=== PATIENT | female | born 1950 | race Caucasian/White ===

== ENCOUNTER 2021-12-24 18:03 | Outpatient (CLI) | payer MEDICARE, OTHER | END 2021-12-24 23:59 | disposition critical access hospital (66) | LOC: EMS 18:03 | DX: R06.09 Other forms of dyspnea (principal); R60.0 Localized edema | CPT/HCPCS: A0425; A0429 ==

== ENCOUNTER 2021-12-24 18:23 | Inpatient (IN) | payer MEDICARE, OTHER ==
--- NOTE | 2021-12-24 19:12 | XRAY Report ---
PROCEDURE: Chest 1 View X-Ray INDICATIONS: dyspnea TECHNIQUE: One view of the chest was acquired. COMPARISON: None. FINDINGS: Surgical changes and devices: None. Lungs and pleura: Hyperinflation consistent with COPD. Mildly increased pulmonary vascularity. No foc al consolidation. Trace pleural effusion may be present. There is a nodular density in the right uppe r lobe, most likely caused by summation artifact from crossing ribs. No pneumothorax. Mediastinum: Mediastinal contours appear normal. Heart size is normal. Bones and chest wall: No suspicious bony lesions. Overlying soft tissues appear unremarkable. IMPRESSION: 1. COPD. 2. Increased pulmonary vascularity suggesting mild CHF. 3. Trace pleural effusions bilaterally. 4. A nodular density in the right upper lobe, most likely caused by artifact from crossing ribs. A no nemergent follow-up two-view chest is suggested. Reviewed by: Ho Chaves MD on 12/24/2021 7:10 PM PST Approved by: Ho Chaves MD on 12/24/2021 7:10 PM PST Station ID: [id number]
[2021-12-24 19:22] LABS: BASOPHILS % (AUTO) 0.3 %; EOSINOPHILS % (AUTO) 0.3 %; HCT - HEMATOCRIT 55.9 % (37.0-47.0); LYMPHOCYTES # (AUTO) 0.4 10^3/uL (1.5-3.5); LYMPHOCYTES % (AUTO) 4.8 %; MEAN CORPUSCULAR HEMOGLOBIN 30.2 pg (27.0-31.0); MEAN CORPUSCULAR HGB CONC 30.4 g/dL (32.0-36.0); MEAN CORPUSCULAR VOLUME 99.3 fL (81.0-99.0); MEAN PLATELET VOLUME 10.3 fL (7.9-10.8); MONOCYTES # (AUTO) 0.9 10^3/uL (0.0-1.0); MONOCYTES % (AUTO) 11.1 %; NEUTROPHILS # (AUTO) 6.4 10^3/uL (1.5-6.6); NEUTROPHILS % (AUTO) 82.6 %; NRBC ABSOLUTE COUNT (AUTO) 0.18 x10^3/uL; NUCLEATED RED BLOOD CELLS AUTO 2.3 /100WBC; PLT - PLATELET COUNT 284 10^3/uL (130-450); RED BLOOD COUNT 5.63 10^6/uL (4.20-5.40); WHITE BLOOD COUNT 7.7 x10^3/uL (4.8-10.8)
[2021-12-24 19:34] LABS: ALBUMIN 3.5 g/dL (3.2-5.5); ALBUMIN/GLOBULIN RATIO 0.9 (1.0-2.2); BILIRUBIN,TOTAL 0.6 mg/dL (0.2-1.0); CALCIUM 9.1 mg/dL (8.5-10.3); CREATININE 0.6 mg/dL (0.4-1.0); MAGNESIUM 2.4 mg/dL (1.7-2.8); POTASSIUM 4.9 mmol/L (3.5-5.0); TOTAL PROTEIN 7.2 g/dL (6.7-8.2)
--- NOTE | 2021-12-24 20:03 | ED Physician Documentation ---
PD HPI DYSPNEA - Stated complaint Stated Complaint: WEAKNESS/SOA - Chief complaint Chief Complaint: Resp - History obtained from History obtained from: Patient - Additional information Additional information: 71-year-old woman with long standing history of tobacco abuse albeit quit about a year ago presents with several weeks of worsening shortness of breath. Its associate with mild cough. No orthopnea. She does have some pedal edema. She subsequently called the ambulance tonight for her shortness of breath and was found to have room air sats in the 70s. She has no formal diagnosis of COPD or emphysema. No history of heart problems. Review of Systems Constitutional: denies: Fever, Chills Eyes: reports: Reviewed and negative Nose: denies: Rhinorrhea / runny nose Cardiac: denies: Chest pain / pressure, Palpitations Respiratory: reports: Dyspnea, Cough PD PAST MEDICAL HISTORY - Present Medications Home Medications: Ambulatory Orders Medication Instructions Recorded Confirmed No Known Home Medications 12/24/21 12/24/21 - Allergies Allergies/Adverse Reactions: Allergies Allergy/AdvReac Type Severity Reaction Status Date / Time amoxicillin Allergy Hives Verified 12/24/21 18:33 PD ED PE NORMAL - Vitals Vital signs reviewed: Yes - General General: Alert and oriented X 3, Other (Mildly labored breathing, sats in the high 80s on supplemental oxygen but speaking in full sentences.) - HEENT HEENT: PERRL, EOMI - Neck Neck: Supple, no meningeal sign, No bony TTP - Cardiac Cardiac: Other (Rapid and regular without murmur) - Respiratory Respiratory: No respiratory distress, Other (Slightly diminished throughout with expiratory wheezes throughout) - Abdomen Abdomen: Non tender - Back Back: No CVA TTP, No spinal TTP - Derm Derm: Normal color, Warm and dry - Extremities Extremities: Other (1+ PITTING EDEMA) - Neuro Neuro: Alert and oriented X 3, Normal speech Results - Vitals Vitals: Vital Signs - 24 hr 12/24/21 12/24/21 12/24/21 18:33 18:40 19:10 Temperature 37.2 C Heart Rate 103 H 104 H 103 H Respiratory 24 24 18 Rate Blood Pressure 150/82 H 150/82 H 126/76 O2 Saturation 85 L 100 100 If not protocol 4 4 : Oxygen Flow, liters/minute 12/24/21 12/24/21 12/24/21 19:40 20:35 21:01 Temperature Heart Rate 104 H 24 L Respiratory 16 101 H Rate Blood Pressure 111/65 O2 Saturation 96 89 L If not protocol 4 4 : Oxygen Flow, liters/minute Oxygen O2 Source Room air Oxygen Flow Rate 2 - EKG (time done) 1855 Rate: Rate (enter#) (102) Rhythm: Sinus tachycardia, LAE, FRANCISCO [place]: Normal Intervals: Other (Left anterior fascicular block) QRS: LVH (Borderline) Ischemia: Q waves (Anterior). No: ST elevation c/w ischemia, ST depression - Labs Labs: Laboratory Tests 12/24/21 12/24/21 12/24/21 19:09 19:09 19:09 WBC 7.7 RBC 5.63 H Hgb 17.0 H Hct 55.9 H MCV 99.3 H MCH 30.2 MCHC 30.4 L RDW 17.0 H Plt Count 284 MPV 10.3 Neut # (Auto) 6.4 Lymph # (Auto) 0.4 L Kerr # (Auto) 0.9 Eos # (Auto) 0.0 Baso # (Auto) 0.0 Absolute Nucleated RBC 0.18 Nucleated RBC % 2.3 VBG pH VBG pCO2 VBG pO2 VBG HCO3 VBG Total CO2 VBG O2 Saturation VBG Base Excess Sodium 143 Potassium 4.9 Chloride 97 L Carbon Dioxide 38 H Anion Gap 8.0 BUN 48 H Creatinine 0.6 Estimated GFR (MDRD) 98 Glucose 133 H Lactic Acid Calcium 9.1 Magnesium 2.4 Total Bilirubin 0.6 AST 38 ALT 57 Alkaline Phosphatase 105 B-Natriuretic Peptide 793 H Total Protein 7.2 Albumin 3.5 Globulin 3.7 Albumin/Globulin Ratio 0.9 L 12/24/21 12/24/21 19:09 20:05 WBC RBC Hgb Hct MCV MCH MCHC RDW Plt Count MPV Neut # (Auto) Lymph # (Auto) Kerr # (Auto) Eos # (Auto) Baso # (Auto) Absolute Nucleated RBC Nucleated RBC % VBG pH 7.373 VBG pCO2 61.0 H VBG pO2 71.9 H VBG HCO3 34.7 H VBG Total CO2 36.6 H VBG O2 Saturation 94.6 H VBG Base Excess 6.8 H Sodium Potassium Chloride Carbon Dioxide Anion Gap BUN Creatinine Estimated GFR (MDRD) Glucose Lactic Acid 1.0 Calcium Magnesium Total Bilirubin AST ALT Alkaline Phosphatase B-Natriuretic Peptide Total Protein Albumin Globulin Albumin/Globulin Ratio - Rads (name of study) 1V CXR Radiology: EMP read contemporaneously (Single view chest x-ray demonstrates COPD and possibly mild CHF with trace bilateral effusions. Possible nodular density in the right upper lobe needing follow-up.) PD MEDICAL DECISION MAKING - ED course ED course: 71-year-old woman without formal diagnosis of COPD presents with dyspnea, hypoxemia down into the 70s at home, some cough and also some pedal edema. Work-up here demonstrates polycythemia, probably secondary, evidence of chronic CO2 retention without current acidosis, elevated BNP, and chest x-ray showing evidence of COPD with small bilateral pleural effusions and mild CHF. Also likely artifact from crossing ribs but a follow-up chest x-ray is recommended. She did not get much improvement from breathing treatments, steroids, and Rocephin in the emergency department. After 3 breathing treatments I turned off her supplemental oxygen and she drifted down to about 88% on room air. The oxygen was turned back on of course. We will add some Lasix for diuresis and the hospitalist was paged for admission at 9:04 PM. - Critical Care Time(min): 40 Time Includes: Direct patient care, Review records, Reassess patient, Document care, Coordinate care, Medical consult Data interpretation: Labs, Pulse ox, ABG Procedures included in critical care time: Peripheral IV Procedures excluded from critical care time: EKG Departure - Departure Disposition: 66 [facility] DC/Xfer Clinical Impression: COPD exacerbation, Hypoxemia Congestive heart failure Qualifiers: Heart failure type: unspecified Heart failure chronicity: unspecified Qualified Code(s): I50.9 - Heart failure, unspecified Condition: Serious
[2021-12-24] MEDS ORDERED: methylPREDNISolone SUCCINATE 125 MG/2 ML VIAL IVP STA (20:06)
[2021-12-24] MEDS ORDERED: cefTRIAXone 1 GM in SODIUM CHLORIDE 0.9% MINIBAG 100 ML IV STA (20:06)
[2021-12-24] MEDS ORDERED: IPRATROPIUM/ALBUTEROL 3 ML NEB INH STA (20:07)
[2021-12-24] MEDS ORDERED: ALBUTEROL NEB 2.5 MG/3 ML INH STA (20:07)
[2021-12-24 20:11] LABS: VBG BASE EXCESS 6.8 mmol/L (-2 - +2); VBG HCO3 34.7 mmol/L (23-28); VBG OXYGEN SATURATION 94.6 % (60-80); VBG PH 7.373 (7.31-7.41); VBG PO2 71.9 mmHg (25-47); VBG TOTAL CO2 36.6 mmol/L (24-29)
[2021-12-24] MEDS ORDERED: cefTRIAXone 1 GM VIAL ONE (20:18)
[2021-12-24] MEDS ORDERED: FUROSEMIDE 40 MG/4 ML VIAL IVP STA (21:03)
[2021-12-24] MEDS ORDERED: ACETAMINOPHEN 325 MG TABLET PO PRN (22:00)
[2021-12-24] MEDS ORDERED: SODIUM CHLORIDE FLUSH 0.9% 10 ML SYRINGE IVP PRN (22:00)
[2021-12-24] MEDS ORDERED: ONDANSETRON 4 MG/2 ML VIAL IVP PRN (22:00)
[2021-12-24] MEDS ORDERED: HYDROcod/ACETAM 5/325 MG TABLET PO PRN (22:00)
[2021-12-24] MEDS ORDERED: ZOLPIDEM 5 MG TABLET PO PRN (22:00)
[2021-12-24] MEDS ORDERED: predniSONE 20 MG TABLET PO STA (22:06)
[2021-12-24] MEDS ORDERED: MAGNESIUM SULFATE 2 GRAM 2 GM/50 ML BAG IV ONE (22:07)
--- NOTE | 2021-12-24 22:12 | HISTORY & PHYSICAL EXAMINATION ---
Chief Complaint - Chief Complaint Chief Complaint: SOB and weakness History of Present Illness - Admitted From Admitted From:: Home - History Obtained From Records Reviewed: Yes History obtained from: Medical records and discussing with ER MD Exam Limitations: Televideo not working well - History of Present Illness HPI Comment/Other: 71 yr woman with hx of chronic tobacco use dependence smoking quit one year ago comes to ER with worsening SOB, cough, barrel chest, patient in ER found to be hypoxic also found to have elevated BNP with CXR concerning for mild CHF. Patient needed multiple nebs and iv steroids and I was requested by ER MD to admit patient for medical optimization, patient also found to be hypoxic with metabolic alkalosis and co2 retention likely from COPD. History obtained limited and unable to have vido connect due to technical difficulty No other active concer, no cp, no palpitations and no other active complaints We were able to get connected on telemedicine and technical issues resolved, patient used to work in a bank, leaves alone, not feeling well for last 14 days, patient did have a runny nose, discussed with ER MD and awaiting Flu/Covid panel he will follow up and call me if any positive results, no chest, no plaitations, no other acute complaints, still feels weak and tired, discussed code status and she wants to be full code. I appreciate the assitance from RN sales clerk supervisor with televideo call, Meds/Allgy - Home Medications Home Medications: Ambulatory Orders Medication Instructions Recorded Confirmed No Known Home Medications 12/24/21 12/24/21 - Allergies Allergies/Adverse Reactions: Allergies Allergy/AdvReac Type Severity Reaction Status Date / Time amoxicillin Allergy Hives Verified 12/24/21 18:33 Review of Systems - Respiratory Respiratory: reports: Cough Prior Level of Functionality: Independent with ADL Exam - Vital Signs Vital Signs: Vital Signs x48h Temp Pulse Resp BP Pulse Ox O2 Flow Rate 12/24/21 21:01 89 L 12/24/21 20:35 24 L 101 H 4 12/24/21 19:40 104 H 16 111/65 96 4 12/24/21 19:10 103 H 18 126/76 100 4 12/24/21 18:40 104 H 24 150/82 H 100 4 12/24/21 18:33 37.2 C 103 H 24 150/82 H 85 L - Physical Exam General Appearance: positive: No acute distress Respiratory: positive: Other (Barell chest) Cardiovascular: positive: Regular rate & rhythm Abdomen: positive: Non-tender, No organomegaly Extremities: positive: Non-tender, Full ROM Neurologic/Psychiatric: positive: Oriented x3, CN's nml (2-12) Sepsis Event Note (H) - Evaluation Current Stage of Sepsis: Ruled out Conclusion/Plan - Problem List (1) COPD exacerbation Conclusion/Plan: Duonebs, magnesium empiric abx PFT once improved Patient has been congratulated on tobacco cessation for an year (2) Congestive heart failure Conclusion/Plan: Check echo Systolic vs diastolic heart failure gentle diuresis further treatment based on clinical course Qualifiers: Heart failure type: unspecified Heart failure chronicity: unspecified Qualified Code(s): I50.9 - Heart failure, unspecified (3) Hypoxemia Conclusion/Plan: Supplemental oxygen (4) Tobacco dependence Conclusion/Plan: Quit one year ago - Lab Results Fish Bones: 12/24/21 19:09 12/24/21 19:09
[2021-12-24 22:18] LABS: B. PARAPERTUSSIS- RESP PCR PAN NOT DETECTED; B. PERTUSSIS- RESP PCR PANEL NOT DETECTED; C. PNEUMONIAE- RESP PCR PANEL NOT DETECTED; CORONAVIRUS 229E-RESP PCR NOT DETECTED; CORONAVIRUS HKU1-RESP PCR NOT DETECTED; CORONAVIRUS NL63-RESP PCR NOT DETECTED; CORONAVIRUS OC43-RESP PCR NOT DETECTED; HUMAN METAPNEUMOVIRUS NOT DETECTED; INFLUENZA A- RESP PCR PANEL NOT DETECTED; INFLUENZA B - RESP PCR PANEL NOT DETECTED; M. PNEUMONIAE- RESP PCR PANEL NOT DETECTED; PARAINFLUENZA VIRUS 1 NOT DETECTED; PARAINFLUENZA VIRUS 2 NOT DETECTED; PARAINFLUENZA VIRUS 3 NOT DETECTED; PARAINFLUENZA VIRUS 4 NOT DETECTED; RHINOVIRUS/ENTEROVIRUS NOT DETECTED; RSV- RESP PCR PANEL NOT DETECTED; SARS-CoV-2 -RESP PCR PANEL NOT DETECTED
[2021-12-24] MEDS: IPRATROPIUM/ALBUTEROL 3 ML NEB INH SCH (23:37)
[2021-12-24] MEDS: AZITHROMYCIN INJ 500 MG in SODIUM CHLORIDE 0.9% 250 ML IV SCH (23:41)
[2021-12-25] MEDS: SODIUM CHLORIDE FLUSH 0.9% 10 ML SYRINGE IVP SCH ×3 (00:40→20:47)
[2021-12-25] MEDS: IPRATROPIUM/ALBUTEROL 3 ML NEB INH SCH ×3 (06:15→22:45)
[2021-12-25] MEDS ORDERED: FUROSEMIDE 40 MG/4 ML VIAL IVP SCH (09:00)
--- NOTE | 2021-12-25 13:47 | ED Physician Documentation ---
ED Addendum - Addendum Addendum: 12/25/21 13:47 Note is made of a preliminary positive blood culture 1 out of 2 bottles with gram-positive cocci in clusters. Early identification is not yet available. The patient is on Rocephin and Zithromax. I will advise the hospitalist.
--- NOTE | 2021-12-25 15:28 | PHARMACY PROGRESS NOTE ---
- Best Possible Medication History Admit Date and Time: 12/25/21 1398 Processed by: Pharmacy Medication History completed: Yes Patient Interview: Completed (Insurance search returned 0 records. Patient states she does not take any prescription medication, OTC supplements and vitamins, or herbal supplements at home.) As the person ultimately responsible for medication therapy, providers are able to order a medication from an existing home medication list in [facility] via the "Reconcile Routine" prior to Confirmation of that medication by applications support lead. Such practice is discouraged except when the physician, in their clinical judgment, deems that a medical need exists for a medication without regard to previous use.
--- NOTE | 2021-12-25 16:29 | PROVIDER PROGRESS NOTE ---
Assessment/Plan - Problem List (1) Gram-positive bacteremia Assessment/Plan: Today 1 out of 2 bottles, drawn in the ED, has turned positive for gram-positive cocci. Plan: Will admit from Observation status to Inpt Will continue with empiric iv Ceftriaxone. Await identification and sensitivity results to tailor antibx (2) Acute respiratory failure with hypoxia Conclusion/Plan: Plan: Supplemental oxygen ordered Target sat 88% or higher in this COPDer She will need an oximetry walk test on the day of discharge for very likely needing a new home O2 order. (3) COPD exacerbation Conclusion/Plan: Unknown if she ever had PFTs, but she has clinical and EKG findings of severe COPD. Patient was congratulated on tobacco cessation for a year. Plan: We ordered Duonebs, empiric abx Will add Mucinex, Montelukast and steroids (4) Congestive heart failure Conclusion/Plan: Systolic vs diastolic heart failure, suspected due to very elevated BNP of 790. Plan: Troponins were not ordered at admission, then she boarded in the ED for 1 day. Will order troponins and now x2 to eval for ACS. 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 My interpretation is that she likely has Cor Pulmonale, based on that EKG, which shows: sinus tachycardia, P pulmonale, right axis deviation, and low voltage. Plan: gentle diuresis with Lasix 40 mg was ordered, but will be decreased to 20 mg iv daily, as she is at risk of underfilling a dilated RV and having hypotension (6) Polycythemia Conclusion/Plan: This is a sign of her very likely longstanding COPD and chronic hypoxia. (7) Protein calorie malnutrition Conclusion/Plan: Her BMI is 20. Plan: Will offer Ensure for more calorie intake (8) Hx of tobacco use Conclusion/Plan: She quit smoking one year ago - Current Meds Current Meds: Current Medications Generic Name Dose Route Start Last Admin Trade Name Ervin PRN Reason Stop Dose Admin Albuterol/Ipratropium 3 ml 12/25/21 00:00 12/25/21 12:10 Ipratropium/Albuterol 3 Ml Neb INH 3 ml Q6HR LEÓN Administration Furosemide 40 mg 12/25/21 09:00 12/25/21 08:51 Furosemide 40 Mg/4 Ml Vial IVP 40 mg DAILY LEÓN Administration Azithromycin 500 mg/ Sodium 250 mls @ 250 mls/hr 12/24/21 23:00 12/25/21 00:48 Chloride IV Infused Q24H LEÓN Infusion Sodium Chloride 10 ml 12/25/21 01:00 12/25/21 08:51 Sodium Chloride Flush 0.9% 10 Ml Syringe IVP 10 ml 0100,0900,1700 LEÓN Administration - Lab Result Fish Bone Diagrams: 12/24/21 19:09 12/24/21 19:09 Subjective - Subjective Patient Reports: Shortness of Breath (Feels better on O2 and after 1 day of nebs ), Other (Her leg edema was to knees and has decreased.) Objective Vital Signs: Vital Signs - 24 hr 12/24/21 12/24/21 12/24/21 18:33 18:40 19:10 Temperature 37.2 C Heart Rate 103 H 104 H 103 H Heart Rate [ Brachial] Respiratory 24 24 18 Rate Blood Pressure 150/82 H 150/82 H 126/76 Blood Pressure [Right Brachial artery] O2 Saturation 85 L 100 100 If not protocol 4 4 : Oxygen Flow, liters/minute 12/24/21 12/24/21 12/24/21 19:40 20:35 21:01 Temperature Heart Rate 104 H 24 L Heart Rate [ Brachial] Respiratory 16 101 H Rate Blood Pressure 111/65 Blood Pressure [Right Brachial artery] O2 Saturation 96 89 L If not protocol 4 4 : Oxygen Flow, liters/minute 12/24/21 12/24/21 12/24/21 21:30 22:00 22:30 Temperature Heart Rate 103 H 103 H 104 H Heart Rate [ Brachial] Respiratory 22 24 26 H Rate Blood Pressure 133/75 H 140/75 H 127/70 Blood Pressure [Right Brachial artery] O2 Saturation 96 94 92 If not protocol 4 4 4 : Oxygen Flow, liters/minute 12/24/21 12/24/21 12/25/21 23:00 23:30 00:00 Temperature Heart Rate 106 H 105 H 102 H Heart Rate [ Brachial] Respiratory 24 20 25 H Rate Blood Pressure 118/70 116/67 115/64 Blood Pressure [Right Brachial artery] O2 Saturation 94 93 93 If not protocol 4 4 4 : Oxygen Flow, liters/minute 12/25/21 12/25/21 12/25/21 00:30 01:00 05:55 Temperature Heart Rate 99 94 92 Heart Rate [ Brachial] Respiratory 20 24 21 Rate Blood Pressure 102/58 L 106/57 L Blood Pressure [Right Brachial artery] O2 Saturation 93 93 94 If not protocol 4 4 4 : Oxygen Flow, liters/minute 12/25/21 12/25/21 12/25/21 06:15 09:35 12:10 Temperature Heart Rate 92 85 88 Heart Rate [ Brachial] Respiratory 24 21 22 Rate Blood Pressure 114/68 Blood Pressure [Right Brachial artery] O2 Saturation 97 If not protocol 3 2 3 : Oxygen Flow, liters/minute 12/25/21 12/25/21 12/25/21 13:12 14:59 16:00 Temperature 36.7 C Heart Rate 96 Heart Rate [ 93 Brachial] Respiratory 23 18 Rate Blood Pressure 92/75 Blood Pressure 103/57 L [Right Brachial artery] O2 Saturation 97 93 If not protocol 3 2 : Oxygen Flow, liters/minute Oxygen O2 Source Nasal cannula Oxygen Flow Rate 2 I&O (Last 24 Hrs): Intake and Output Totals x24h 12/23/21 12/24/21 12/25/21 23:59 23:59 23:59 Intake Total 100 300 Output Total 1200 700 Balance -1100 -400 General: Alert, Oriented x3, Other (Cachectic) HEENT: Mucous membr. moist/pink, Other (wearing O2 per n.c.) Neck: Supple, Other ((-) JVD at 45 degree angle) Neuro: Alert, Non Focal Cardiovascular: Other (Tachy, Syst murmur at LLSB. PMI is in epigastric area, vertically displaced.) Respiratory: Other (Poor air mvm, but no rales or wheezes.) Abdomen: Normal bowel sounds, Soft Extremities: Other (1-2+ pre-tibial edema) - Results Results: Laboratory Results WBC 7.7 x10^3/uL (4.8-10.8) 12/24/21 19:09 RBC 5.63 10^6/uL (4.20-5.40) H 12/24/21 19:09 Hgb 17.0 g/dL (12.0-16.0) H 12/24/21 19:09 Hct 55.9 % (37.0-47.0) H 12/24/21 19:09 MCV 99.3 fL (81.0-99.0) H 12/24/21 19:09 MCH 30.2 pg (27.0-31.0) 12/24/21 19:09 MCHC 30.4 g/dL (32.0-36.0) L 12/24/21 19:09 RDW 17.0 % (12.0-15.0) H 12/24/21 19:09 Plt Count 284 10^3/uL (130-450) 12/24/21 19:09 MPV 10.3 fL (7.9-10.8) 12/24/21 19:09 Neut # (Auto) 6.4 10^3/uL (1.5-6.6) 12/24/21 19:09 Lymph # (Auto) 0.4 10^3/uL (1.5-3.5) L 12/24/21 19:09 [place] # (Auto) 0.9 10^3/uL (0.0-1.0) 12/24/21 19:09 Eos # (Auto) 0.0 10^3/uL (0.0-0.7) 12/24/21 19:09 Baso # (Auto) 0.0 10^3/uL (0.0-0.1) 12/24/21 19:09 Absolute Nucleated RBC 0.18 x10^3/uL 12/24/21 19:09 Nucleated RBC % 2.3 /100WBC 12/24/21 19:09 VBG pH 7.373 (7.31-7.41) 12/24/21 20:05 VBG pCO2 61.0 mmHg (41-51) H 12/24/21 20:05 VBG pO2 71.9 mmHg (25-47) H 12/24/21 20:05 VBG HCO3 34.7 mmol/L (23-28) H 12/24/21 20:05 VBG Total CO2 36.6 mmol/L (24-29) H 12/24/21 20:05 VBG O2 Saturation 94.6 % (60-80) H 12/24/21 20:05 VBG Base Excess 6.8 mmol/L (-2 - +2) H 12/24/21 20:05 Sodium 143 mmol/L (135-145) 12/24/21 19:09 Potassium 4.9 mmol/L (3.5-5.0) 12/24/21 19:09 Chloride 97 mmol/L (101-111) L 12/24/21 19:09 Carbon Dioxide 38 mmol/L (21-32) H 12/24/21 19:09 Anion Gap 8.0 (6-13) 12/24/21 19:09 BUN 48 mg/dL (6-20) H 12/24/21 19:09 Creatinine 0.6 mg/dL (0.4-1.0) 12/24/21 19:09 Estimated GFR (MDRD) 98 (>89) 12/24/21 19:09 Glucose 133 mg/dL (70-100) H 12/24/21 19:09 Lactic Acid 1.0 mmol/L (0.5-2.2) 12/24/21 19:09 Calcium 9.1 mg/dL (8.5-10.3) 12/24/21 19:09 Magnesium 2.4 mg/dL (1.7-2.8) 12/24/21 19:09 Total Bilirubin 0.6 mg/dL (0.2-1.0) 12/24/21 19:09 AST 38 IU/L (10-42) 12/24/21 19:09 ALT 57 IU/L (10-60) 12/24/21 19:09 Alkaline Phosphatase 105 IU/L (42-121) 12/24/21 19:09 B-Natriuretic Peptide 793 pg/mL (5-100) H 12/24/21 19:09 Total Protein 7.2 g/dL (6.7-8.2) 12/24/21 19:09 Albumin 3.5 g/dL (3.2-5.5) 12/24/21 19:09 Globulin 3.7 g/dL (2.1-4.2) 12/24/21 19:09 Albumin/Globulin Ratio 0.9 (1.0-2.2) L 12/24/21 19:09 Nasal Adenovirus (PCR) NOT DETECTED 12/24/21 20:49 Nasal B. parapertussis DNA (PCR) NOT DETECTED 12/24/21 20:49 Nasal Coronavir 229E PCR NOT DETECTED 12/24/21 20:49 Nasal Coronavir HKU1 PCR NOT DETECTED 12/24/21 20:49 Nasal Coronavir NL63 PCR NOT DETECTED 12/24/21 20:49 Nasal Coronavir OC43 PCR NOT DETECTED 12/24/21 20:49 Nasal Enterovir/Rhinovir PCR NOT DETECTED 12/24/21 20:49 Nasal Influenza B PCR NOT DETECTED 12/24/21 20:49 Nasal Influenza A PCR NOT DETECTED 12/24/21 20:49 Nasal Parainfluen 1 PCR NOT DETECTED 12/24/21 20:49 Nasal Parainfluen 2 PCR NOT DETECTED 12/24/21 20:49 Nasal Parainfluen 3 PCR NOT DETECTED 12/24/21 20:49 Nasal Parainfluen 4 PCR NOT DETECTED 12/24/21 20:49 Nasal RSV (PCR) NOT DETECTED 12/24/21 20:49 Nasal B.pertussis DNA PCR NOT DETECTED 12/24/21 20:49 Nasal C.pneumoniae (PCR) NOT DETECTED 12/24/21 20:49 Brian Human Metapneumo PCR NOT DETECTED 12/24/21 20:49 Nasal M.pneumoniae (PCR) NOT DETECTED 12/24/21 20:49 Nasal SARS-CoV-2 (PCR) NOT DETECTED 12/24/21 20:49 Sepsis Event Note (H) - Evaluation Current Stage of Sepsis: Ruled out
[2021-12-25] MEDS ORDERED: IPRATROPIUM/ALBUTEROL 3 ML NEB INH PRN (18:36)
[2021-12-25] MEDS ORDERED: cefTRIAXone 1 GM in SODIUM CHLORIDE 0.9% MINIBAG 100 ML IV SCH (20:00)
[2021-12-25] MEDS: MONTELUKAST 10 MG TABLET PO SCH (20:46)
[2021-12-25] MEDS: methylPREDNISolone SUCCINATE 40 MG/ML VIAL IVP SCH (21:46)
[2021-12-25] MEDS: AZITHROMYCIN INJ 500 MG in SODIUM CHLORIDE 0.9% 250 ML IV SCH (22:40)
[2021-12-25] MEDS: BUDESONIDE 0.5 MG/2 ML NEB INH SCH (22:45)
[2021-12-26] MEDS: SODIUM CHLORIDE FLUSH 0.9% 10 ML SYRINGE IVP SCH ×3 (00:24→21:20)
[2021-12-26 05:38] LABS: BASOPHILS % (AUTO) 0.2 %; HCT - HEMATOCRIT 54.2 % (37.0-47.0); HGB - HEMOGLOBIN 16.4 g/dL (12.0-16.0); LYMPHOCYTES # (AUTO) 0.2 10^3/uL (1.5-3.5); LYMPHOCYTES % (AUTO) 2.1 %; MEAN CORPUSCULAR HEMOGLOBIN 29.9 pg (27.0-31.0); MEAN CORPUSCULAR HGB CONC 30.3 g/dL (32.0-36.0); MEAN CORPUSCULAR VOLUME 98.7 fL (81.0-99.0); MEAN PLATELET VOLUME 10.7 fL (7.9-10.8); MONOCYTES # (AUTO) 0.4 10^3/uL (0.0-1.0); MONOCYTES % (AUTO) 3.2 %; NEUTROPHILS # (AUTO) 10.4 10^3/uL (1.5-6.6); NEUTROPHILS % (AUTO) 93.7 %; PLT - PLATELET COUNT 253 10^3/uL (130-450); RED BLOOD COUNT 5.49 10^6/uL (4.20-5.40); RED CELL DISTRIBUTION WIDTH 16.4 % (12.0-15.0); WHITE BLOOD COUNT 11.1 x10^3/uL (4.8-10.8)
[2021-12-26 05:45] LABS: CALCIUM 8.8 mg/dL (8.5-10.3); CREATININE 0.5 mg/dL (0.4-1.0); MAGNESIUM 2.5 mg/dL (1.7-2.8); POTASSIUM 4.4 mmol/L (3.5-5.0)
[2021-12-26] MEDS: methylPREDNISolone SUCCINATE 40 MG/ML VIAL IVP SCH ×3 (06:02→21:20)
[2021-12-26] MEDS: IPRATROPIUM/ALBUTEROL 3 ML NEB INH SCH ×3 (07:30→18:06)
[2021-12-26] MEDS: BUDESONIDE 0.5 MG/2 ML NEB INH SCH ×2 (07:31→18:06)
[2021-12-26] MEDS: FUROSEMIDE 40 MG/4 ML VIAL IVP SCH (08:31)
--- NOTE | 2021-12-26 12:28 | PROVIDER PROGRESS NOTE ---
Subjective - Prog Note Date Prog Note Date: 12/26/21 Prog Note Time: 12:26 - Subjective Pt reports feeling: Improved (She is feeling better this morning and was able to get out of bed and sit in a chair today. Walking from the bathroom to her chair had her out of breath.) Current Medications - Current Medications Current Medications: Active Medications Acetaminophen (Acetaminophen 325 Mg Tablet) 650 mg PO Q4HR PRN PRN Reason: Pain 1 to 4, or Fever Hydrocodone Bitart/Acetaminophen (Hydrocod/Acetam 5/325 Mg Tablet) 1 tab PO Q4HR PRN PRN Reason: Pain 5 to 7 Albuterol/Ipratropium (Ipratropium/Albuterol 3 Ml Neb) 3 ml INH Q6HR [facility] Last Admin: 12/26/21 07:30 Dose: 3 ml Albuterol/Ipratropium (Ipratropium/Albuterol 3 Ml Neb) 3 ml INH Q4HR PRN PRN Reason: Wheezing Budesonide (Budesonide 0.5 Mg/2 Ml Neb) 0.5 mg INH RTBID [facility] Last Admin: 12/26/21 07:31 Dose: 0.5 mg Furosemide (Furosemide 40 Mg/4 Ml Vial) 20 mg IVP DAILY [facility] [place] Last Admin: 12/26/21 08:31 Dose: 20 mg Ceftriaxone Sodium 1 gm/ (Sodium Chloride) 100 mls @ 200 mls/hr IV Q24H [facility] [place] Last Infusion: 12/25/21 21:24 Dose: Infused Azithromycin 500 mg/ Sodium (Chloride) 250 mls @ 250 mls/hr IV Q24H [facility] [place] Stop: 12/26/21 23:59 Last Infusion: 12/26/21 00:24 Dose: Infused Methylprednisolone (Methylprednisolone Succinate 40 Mg/Ml Vial) 40 mg IVP TID [facility] [place] Last Admin: 12/26/21 06:02 Dose: 40 mg Montelukast Sodium (Montelukast 10 Mg Tablet) 10 mg PO QPM [facility] [place] Last Admin: 12/25/21 20:46 Dose: 10 mg Ondansetron HCl (Ondansetron 4 Mg/2 Ml Vial) 4 mg IVP Q6HR PRN PRN Reason: Nausea / Vomiting Sodium Chloride (Sodium Chloride Flush 0.9% 10 Ml Syringe) 10 ml IVP PRN PRN PRN Reason: NEEDED PER PROVIDER ORDERS Sodium Chloride (Sodium Chloride Flush 0.9% 10 Ml Syringe) 10 ml IVP 0100,0900,1700 [facility] Last Admin: 12/26/21 08:31 Dose: 10 ml Zolpidem Tartrate (Zolpidem 5 Mg Tablet) 5 mg PO QPM PRN PRN Reason: Insomnia No Known Home Medications 12/24/21 Objective - Vital Signs/Intake & Output Vital Signs: Vital Signs x48h Temp Pulse Pulse Resp BP Pulse Ox O2 Flow Rate 12/26/21 08:17 36.7 C 86 20 119/64 92 1 12/26/21 07:48 1 12/26/21 07:35 94 20 1 12/26/21 05:09 36.9 C 69 18 108/57 L 95 1 Intake & Output: Intake & Output 12/23/21 12/24/21 12/25/21 12/26/21 23:59 23:59 23:59 23:59 Intake Total 100 1100 1430 Output Total 1200 700 500 Balance -1100 400 930 - Objective General Appearance: positive: Mild distress Eyes Bilateral: positive: Normal inspection, PERRL, EOMI ENT: positive: ENT inspection nml Neck: positive: Nml inspection, No JVD Respiratory: positive: Wheezes Cardiovascular: positive: No murmur, No gallop, Tachycardia Abdomen: positive: Non-tender, No organomegaly, Nml bowel sounds, No distention Skin: positive: Color nml, No rash, Warm, Dry Extremities: positive: No pedal edema Neurologic/Psychiatric: positive: Oriented x3, CN's nml (2-12), Motor nml, Sensation nml, Mood/affect nml - Lab Results Fish Bones: 12/26/21 04:37 12/26/21 04:37 Other Labs: Lab Results x24hrs 12/26/21 12/26/21 12/26/21 Range/Units 04:37 04:37 04:37 WBC 11.1 H (4.8-10.8) x10^3/uL RBC 5.49 H (4.20-5.40) 10^6/uL Hgb 16.4 H (12.0-16.0) g/dL Hct 54.2 H (37.0-47.0) % MCV 98.7 (81.0-99.0) fL MCH 29.9 (27.0-31.0) pg MCHC 30.3 L (32.0-36.0) g/dL RDW 16.4 H (12.0-15.0) % Plt Count 253 (130-450) 10^3/uL MPV 10.7 (7.9-10.8) fL Neut # (Auto) 10.4 H (1.5-6.6) 10^3/uL Lymph # (Auto) 0.2 L (1.5-3.5) 10^3/uL [place] # (Auto) 0.4 (0.0-1.0) 10^3/uL Eos # (Auto) 0.0 (0.0-0.7) 10^3/uL Baso # (Auto) 0.0 (0.0-0.1) 10^3/uL Absolute Nucleated RBC 0.00 x10^3/uL Nucleated RBC % 0.0 /100WBC Sodium 142 (135-145) mmol/L Potassium 4.4 (3.5-5.0) mmol/L Chloride 89 L (101-111) mmol/L Carbon Dioxide 42 H* (21-32) mmol/L Anion Gap 11.0 (6-13) BUN 33 H (6-20) mg/dL Creatinine 0.5 (0.4-1.0) mg/dL Estimated GFR (MDRD) 121 (>89) Glucose 147 H (70-100) mg/dL Calcium 8.8 (8.5-10.3) mg/dL Magnesium 2.5 (1.7-2.8) mg/dL Troponin I High Sens 16.2 H* (2.3-14.8) ng/L 12/25/21 Range/Units 18:41 WBC (4.8-10.8) x10^3/uL RBC (4.20-5.40) 10^6/uL Hgb (12.0-16.0) g/dL Hct (37.0-47.0) % MCV (81.0-99.0) fL MCH (27.0-31.0) pg MCHC (32.0-36.0) g/dL RDW (12.0-15.0) % Plt Count (130-450) 10^3/uL MPV (7.9-10.8) fL Neut # (Auto) (1.5-6.6) 10^3/uL Lymph # (Auto) (1.5-3.5) 10^3/uL [place] # (Auto) (0.0-1.0) 10^3/uL Eos # (Auto) (0.0-0.7) 10^3/uL Baso # (Auto) (0.0-0.1) 10^3/uL Absolute Nucleated RBC x10^3/uL Nucleated RBC % /100WBC Sodium (135-145) mmol/L Potassium (3.5-5.0) mmol/L Chloride (101-111) mmol/L Carbon Dioxide (21-32) mmol/L Anion Gap (6-13) BUN (6-20) mg/dL Creatinine (0.4-1.0) mg/dL Estimated GFR (MDRD) (>89) Glucose (70-100) mg/dL Calcium (8.5-10.3) mg/dL Magnesium (1.7-2.8) mg/dL Troponin I High Sens 14.1 (2.3-14.8) ng/L Sepsis Event Note (H) - Evaluation Current Stage of Sepsis: Ruled out Assessment/Plan - Problem List (1) Gram-positive bacteremia Impression: (1) Gram-positive bacteremia Assessment/Plan: 1 out of 4 bottles, drawn in the ED, has turned positive for gram-positive cocci. I am considering the possibility of contaminated blood sample because she came back positive just under the 24 hour bismark and her WBC is rising likely due to methylprednisolone administration. Plan: Discontinue ceftriaxone today. Continue last administration of azithromycin tonight then discontinue. Repeat blood cultures (2) Acute respiratory failure with hypoxia Conclusion/Plan: O2 saturation is at 95% with a nasal cannula. I recommend a repeat CXR, her report showed a nodular density in the right upper lobe that may or may not be artifact Plan: Continue oxygen Target sat 88% or higher. She will need an oximetry walk test on the day of discharge for very likely needing a new home O2 order. Repeat CXR. (3) COPD exacerbation Conclusion/Plan: Unknown if she ever had PFTs, but she has clinical and EKG findings of severe COPD. She says this is a new diagnosis for her, she started getting short of breath about three weeks ago when she felt like she was getting a cold, prior to that she never felt short of breath while doing her regular activities. She lives alone in a single family home and does all her own chores and cooking. She has a good support system from family, today she had two nieces in the room with her visiting. She is able to have a conversation without shortness of breath. They live just down the block from her and will be available to help and check on her when she leaves the hospital. Plan: Continue duoneb and montelukast Reduce methylprednisolone to 40mg BID starting 12/27. (4) Congestive heart failure Conclusion/Plan: Systolic vs diastolic heart failure, suspected due to very elevated BNP of 790. Plan: Continue lasix 20mg daily Echo ordered (but today is Tuesday and we have no scrub tech on Fridays and not until Tuesday morning) Follow BNP, I's and O's, daily weights, BMP and Mg Remain on telemetry Qualifiers: Heart failure type: unspecified Heart failure chronicity: unspecified Qualified Code(s): I50.9 - Heart failure, unspecified (5) Abnormal EKG Conclusion/Plan: She has a very remarkable and very abnormal EKG. My interpretation is that she likely has Cor Pulmonale, based on that EKG, which shows: sinus tachycardia, P pulmonale, right axis deviation, and low voltage. Plan: Continue lasix 20mg IV daily (6) Polycythemia Conclusion/Plan: This is a sign of her very likely longstanding COPD and chronic hypoxia. (7) Protein calorie malnutrition Conclusion/Plan: Her BMI is 20. Plan: Will offer Ensure for more calorie intake (8) Hx of tobacco use Conclusion/Plan: She quit smoking one year ago
--- NOTE | 2021-12-26 16:11 | XRAY Report ---
PROCEDURE: Chest 2 View X-Ray INDICATIONS: nodular findings prev cxr TECHNIQUE: 2 views of the chest were acquired. COMPARISON: 12/24/2021 FINDINGS: Surgical changes and devices: None. Lungs and pleura: Pulmonary hyperinflation and chronic interstitial changes present. There is bluntin g of both posterior costophrenic angles reflecting small pleural effusions. Mediastinum: Mediastinal contours are normal. Heart size is normal. Bones and chest wall: No suspicious bony abnormalities. Soft tissues appear unremarkable. Osteopen ia IMPRESSION: Small bibasilar pleural effusions. Hyperinflation and chronic interstitial changes Reviewed by: Israel Montana MD on 12/26/2021 3:09 PM [place] Approved by: Israel Montana MD on 12/26/2021 3:[address] [facility] Station ID: [id number]
[2021-12-26] MEDS: MONTELUKAST 10 MG TABLET PO SCH (21:20)
[2021-12-27] MEDS: IPRATROPIUM/ALBUTEROL 3 ML NEB INH SCH ×4 (01:00→15:55)
[2021-12-27] MEDS: SODIUM CHLORIDE FLUSH 0.9% 10 ML SYRINGE IVP SCH ×3 (03:25→21:39)
[2021-12-27] MEDS: BUDESONIDE 0.5 MG/2 ML NEB INH SCH ×2 (07:09→17:31)
[2021-12-27 09:32] LABS: BASOPHILS % (AUTO) 0.1 %; HCT - HEMATOCRIT 53.9 % (37.0-47.0); HGB - HEMOGLOBIN 16.2 g/dL (12.0-16.0); LYMPHOCYTES # (AUTO) 0.2 10^3/uL (1.5-3.5); LYMPHOCYTES % (AUTO) 1.7 %; MEAN CORPUSCULAR HEMOGLOBIN 29.5 pg (27.0-31.0); MEAN CORPUSCULAR HGB CONC 30.1 g/dL (32.0-36.0); MEAN PLATELET VOLUME 10.4 fL (7.9-10.8); MONOCYTES # (AUTO) 0.7 10^3/uL (0.0-1.0); MONOCYTES % (AUTO) 5.8 %; NEUTROPHILS # (AUTO) 10.9 10^3/uL (1.5-6.6); PLT - PLATELET COUNT 252 10^3/uL (130-450); RED CELL DISTRIBUTION WIDTH 16.2 % (12.0-15.0); WHITE BLOOD COUNT 11.8 x10^3/uL (4.8-10.8)
[2021-12-27] MEDS: FUROSEMIDE 40 MG/4 ML VIAL IVP SCH (09:41)
[2021-12-27] MEDS: methylPREDNISolone SUCCINATE 40 MG/ML VIAL IVP SCH ×2 (09:41→21:39)
[2021-12-27 09:46] LABS: CALCIUM 9.2 mg/dL (8.5-10.3); CREATININE 0.6 mg/dL (0.4-1.0); POTASSIUM 4.4 mmol/L (3.5-5.0)
--- NOTE | 2021-12-27 11:23 | PROVIDER PROGRESS NOTE ---
Subjective - Prog Note Date Prog Note Date: 12/27/21 Prog Note Time: 11:21 - Subjective Pt reports feeling: Improved (Linda feels like she is improving, her SOB is decreasing and she is able to get up to go to the bathroom and sit in a chair for breakfast.) Current Medications - Current Medications Current Medications: Active Medications Acetaminophen (Acetaminophen 325 Mg Tablet) 650 mg PO Q4HR PRN PRN Reason: Pain 1 to 4, or Fever Hydrocodone Bitart/Acetaminophen (Hydrocod/Acetam 5/325 Mg Tablet) 1 tab PO Q4HR PRN PRN Reason: Pain 5 to 7 Albuterol/Ipratropium (Ipratropium/Albuterol 3 Ml Neb) 3 ml INH Q6HR [facility] Last Admin: 12/27/21 11:07 Dose: 3 ml Albuterol/Ipratropium (Ipratropium/Albuterol 3 Ml Neb) 3 ml INH Q4HR PRN PRN Reason: Wheezing Budesonide (Budesonide 0.5 Mg/2 Ml Neb) 0.5 mg INH RTBID [facility] Last Admin: 12/27/21 07:09 Dose: 0.5 mg Furosemide (Furosemide 40 Mg/4 Ml Vial) 20 mg IVP DAILY [facility] Last Admin: 12/27/21 09:41 Dose: 20 mg Methylprednisolone (Methylprednisolone Succinate 40 Mg/Ml Vial) 40 mg IVP BID [facility] Stop: 12/28/21 09:01 Last Admin: 12/27/21 09:41 Dose: 40 mg Montelukast Sodium (Montelukast 10 Mg Tablet) 10 mg PO QPM [facility] Last Admin: 12/26/21 21:20 Dose: 10 mg Ondansetron HCl (Ondansetron 4 Mg/2 Ml Vial) 4 mg IVP Q6HR PRN PRN Reason: Nausea / Vomiting Sodium Chloride (Sodium Chloride Flush 0.9% 10 Ml Syringe) 10 ml IVP PRN PRN PRN Reason: NEEDED PER PROVIDER ORDERS Last Admin: 12/26/21 13:53 Dose: 10 ml Sodium Chloride (Sodium Chloride Flush 0.9% 10 Ml Syringe) 10 ml IVP 010 0,0900,1700 [facility] Last Admin: 12/27/21 09:42 Dose: 10 ml Zolpidem Tartrate (Zolpidem 5 Mg Tablet) 5 mg PO QPM PRN PRN Reason: Insomnia No Known Home Medications 12/24/21 Objective - Vital Signs/Intake & Output Vital Signs: Vital Signs x48h Temp Pulse Pulse Resp BP Pulse Ox O2 Flow Rate 12/27/21 11:11 97 17 2 12/27/21 08:56 36.6 C 100 18 118/59 L 94 2 12/27/21 07:59 86 15 2 12/27/21 04:47 36.5 C 91 18 125/75 94 2 Intake & Output: Intake & Output 12/24/21 12/25/21 12/26/21 12/27/21 23:59 23:59 23:59 23:59 Intake Total 100 1100 2230 1220 Output Total 1200 700 600 750 Balance -8357 851 1782 470 - Objective General Appearance: positive: No acute distress, Alert Eyes Bilateral: positive: Normal inspection, PERRL, EOMI ENT: positive: ENT inspection nml, Pharynx nml, No signs of dehydration Neck: positive: Nml inspection, No JVD, Trachea midline. negative: Lymphadenopathy (R), Lymphadenopathy (L), Stiff neck Respiratory: positive: No respiratory distress (she is at 94% O2 sat with nasal cannula), Wheezes Cardiovascular: positive: Regular rate & rhythm, No murmur, No gallop Abdomen: positive: Non-tender, No organomegaly, No distention. negative: Guarding, Rebound Skin: positive: Color nml, No rash, Warm, Dry Extremities: positive: Nml appearance, Pedal edema Neurologic/Psychiatric: positive: Oriented x3, CN's nml (2-12), Motor nml, Sensation nml, Mood/affect nml - Lab Results Fish Bones: 12/27/21 09:27 12/27/21 09:27 Other Labs: Lab Results x24hrs 12/27/21 12/27/21 Range/Units 09:27 09:27 WBC 11.8 H (4.8-10.8) x10^3/uL RBC 5.50 H (4.20-5.40) 10^6/uL Hgb 16.2 H (12.0-16.0) g/dL Hct 53.9 H (37.0-47.0) % MCV 98.0 (81.0-99.0) fL MCH 29.5 (27.0-31.0) pg MCHC 30.1 L (32.0-36.0) g/dL RDW 16.2 H (12.0-15.0) % Plt Count 252 (130-450) 10^3/uL MPV 10.4 (7.9-10.8) fL Neut # (Auto) 10.9 H (1.5-6.6) 10^3/uL Lymph # (Auto) 0.2 L (1.5-3.5) 10^3/uL [place] # (Auto) 0.7 (0.0-1.0) 10^3/uL Eos # (Auto) 0.0 (0.0-0.7) 10^3/uL Baso # (Auto) 0.0 (0.0-0.1) 10^3/uL Absolute Nucleated RBC 0.00 x10^3/uL Nucleated RBC % 0.0 /100WBC Sodium 141 (135-145) mmol/L Potassium 4.4 (3.5-5.0) mmol/L Chloride 92 L (101-111) mmol/L Carbon Dioxide 36 H (21-32) mmol/L Anion Gap 13.0 (6-13) BUN 25 H (6-20) mg/dL Creatinine 0.6 (0.4-1.0) mg/dL Estimated GFR (MDRD) 98 (>89) Glucose 261 H (70-100) mg/dL Calcium 9.2 (8.5-10.3) mg/dL Sepsis Event Note (H) - Evaluation Current Stage of Sepsis: Ruled out Assessment/Plan - Problem List (1) Gram-positive bacteremia Impression: Assessment/Plan: I am waiting for repeat blood cultures to be resulted. She finished her final dose of Azithromycin last night. She is not having fever, chills, diaphoresis and her energy is slowly improving. She does still have an increased WBC count and neutrophilia which could be from her steroid use. Her last dose will be tomorrow morning. Plan: Reevaluate CBC and antibiotic use when her blood cultures return. (2) Acute respiratory failure with hypoxia Conclusion/Plan: O2 saturation is at 95% with a nasal cannula. Her repeat CXR is was normal. Plan: Continue oxygen Target sat 88% or higher. She will need an oximetry walk test on the day of discharge for very likely needing a new home O2 order. (3) COPD exacerbation Conclusion/Plan: She is feeling better today and is able to sit up in a chair and eat breakfast and walk from the bed to the bathroom and back with little shortness of breath on the nasal cannula. Her hgb and hct are elevated which could be from prolonged COPD and chronic hypoxemia. Her carbon dioxide level has improved and BUN is improving. Her glucose has increased likely due to her steroid use. Her blood work and EKG are suggestive of long-term COPD however the patient is adamant that she never had problems with shortness of breath before she got sick about three weeks ago. 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 Plan: Continue duoneb and montelukast Discontinue her methylprednisolone after tomorrow morning's dose. Repeat VBG tomorrow. (4) Congestive heart failure Conclusion/Plan: Systolic vs diastolic heart failure, suspected due to very elevated BNP of 790 and EKG suggestive of cor pulmonale. Plan: Continue lasix 20mg daily Echo ordered, she may complete outpatient if she is stable and ready to be discharged before she is able to get an echo performed here. Follow BNP, I's and O's, daily weights, BMP and Mg Remain on telemetry Qualifiers: Heart failure type: unspecified Heart failure chronicity: unspecified Qualified Code(s): I50.9 - Heart failure, unspecified (5) Abnormal EKG Conclusion/Plan: She has a very remarkable and very abnormal EKG. My interpretation is that she likely has Cor Pulmonale, based on that EKG, which shows: sinus tachycardia, P pulmonale, right axis deviation, and low voltage. Plan: Continue lasix 20mg IV daily (6) Polycythemia Conclusion/Plan: This is a sign of her very likely longstanding COPD and chronic hypoxia. (7) Protein calorie malnutrition Conclusion/Plan: Her BMI is 20. Plan: Will offer Ensure for more calorie intake (8) Hx of tobacco use Conclusion/Plan: She quit smoking one year ago
[2021-12-27] MEDS: MONTELUKAST 10 MG TABLET PO SCH (21:39)
[2021-12-28] MEDS: IPRATROPIUM/ALBUTEROL 3 ML NEB INH SCH ×6 (01:52→21:30)
[2021-12-28] MEDS: SODIUM CHLORIDE FLUSH 0.9% 10 ML SYRINGE IVP SCH ×4 (03:50→23:55)
[2021-12-28 05:55] LABS: HCT - HEMATOCRIT 49.7 % (37.0-47.0); HGB - HEMOGLOBIN 14.9 g/dL (12.0-16.0); LYMPHOCYTES # (AUTO) 0.1 10^3/uL (1.5-3.5); LYMPHOCYTES % (AUTO) 1.4 %; MEAN CORPUSCULAR HEMOGLOBIN 29.5 pg (27.0-31.0); MEAN CORPUSCULAR VOLUME 98.4 fL (81.0-99.0); MONOCYTES # (AUTO) 0.4 10^3/uL (0.0-1.0); MONOCYTES % (AUTO) 3.9 %; NEUTROPHILS # (AUTO) 9.3 10^3/uL (1.5-6.6); NEUTROPHILS % (AUTO) 94.1 %; PLT - PLATELET COUNT 226 10^3/uL (130-450); RED BLOOD COUNT 5.05 10^6/uL (4.20-5.40); WHITE BLOOD COUNT 9.9 x10^3/uL (4.8-10.8)
[2021-12-28 05:58] LABS: VBG HCO3 40.7 mmol/L (23-28); VBG PCO2 69.5 mmHg (41-51); VBG PH 7.385 (7.31-7.41); VBG PO2 74.9 mmHg (25-47)
[2021-12-28 05:59] LABS: VBG BASE EXCESS 11.9 mmol/L (-2 - +2); VBG OXYGEN SATURATION 95.9 % (60-80); VBG TOTAL CO2 42.8 mmol/L (24-29)
[2021-12-28 06:32] LABS: CREATININE 0.4 mg/dL (0.4-1.0); POTASSIUM 4.7 mmol/L (3.5-5.0)
[2021-12-28] MEDS: BUDESONIDE 0.5 MG/2 ML NEB INH SCH ×2 (08:06→21:30)
[2021-12-28] MEDS: methylPREDNISolone SUCCINATE 40 MG/ML VIAL IVP SCH (09:13)
[2021-12-28] MEDS: FUROSEMIDE 40 MG/4 ML VIAL IVP SCH (09:13)
--- NOTE | 2021-12-28 11:07 | PROVIDER PROGRESS NOTE ---
Subjective - Prog Note Date Prog Note Date: 12/28/21 Prog Note Time: 11:05 - Subjective Pt reports feeling: Improved Subjective: Linda was feeding herself breakfast and in no acute distress when I saw her this morning. She feels like she is improving slowly each day. She is able to walk herself from her bed, to the toilet, to her chair but it is difficult to get up out of the chair and difficult to get up off the toilet. She has two nieces that live a few blocks from her but they work interactive multimedia designer. Her daughter flew in on Tuesday 12/26 and she will be staying with Linda for a week. Today she was sitting comfortably but still wheezing, she was able to hold a conversation without being short of breath. Current Medications - Current Medications Current Medications: Active Medications Acetaminophen (Acetaminophen 325 Mg Tablet) 650 mg PO Q4HR PRN PRN Reason: Pain 1 to 4, or Fever Hydrocodone Bitart/Acetaminophen (Hydrocod/Acetam 5/325 Mg Tablet) 1 tab PO Q4HR PRN PRN Reason: Pain 5 to 7 Albuterol/Ipratropium (Ipratropium/Albuterol 3 Ml Neb) 3 ml INH Q6HR [facility] Last Admin: 12/28/21 08:05 Dose: 3 ml Albuterol/Ipratropium (Ipratropium/Albuterol 3 Ml Neb) 3 ml INH Q4HR PRN PRN Reason: Wheezing Budesonide (Budesonide 0.5 Mg/2 Ml Neb) 0.5 mg INH RTBID [facility] Last Admin: 12/28/21 08:06 Dose: 0.5 mg Furosemide (Furosemide 40 Mg/4 Ml Vial) 20 mg IVP DAILY [facility] Last Admin: 12/28/21 09:13 Dose: 20 mg Montelukast Sodium (Montelukast 10 Mg Tablet) 10 mg PO QPM [facility] Last Admin: 12/27/21 21:39 Dose: 10 mg Ondansetron HCl (Ondansetron 4 Mg/2 Ml Vial) 4 mg IVP Q6HR PRN PRN Reason: Nausea / Vomiting Sodium Chloride (Sodium Chloride Flush 0.9% 10 Ml Syringe) 10 ml IVP PRN PRN PRN Reason: NEEDED PER PROVIDER ORDERS Last Admin: 12/26/21 13:53 Dose: 10 ml Sodium Chloride (Sodium Chloride Flush 0.9% 10 Ml Syringe) 10 ml IVP 0100,0900,1700 [facility] Last Admin: 12/28/21 09:12 Dose: 10 ml Zolpidem Tartrate (Zolpidem 5 Mg Tablet) 5 mg PO QPM PRN PRN Reason: Insomnia No Known Home Medications 12/24/21 Objective - Vital Signs/Intake & Output Vital Signs: Vital Signs x48h Temp Pulse Pulse Resp BP Pulse Ox O2 Flow Rate 12/28/21 08:55 36.5 C 92 18 106/56 L 92 2 12/28/21 08:10 94 18 2 12/28/21 05:13 36.9 C 88 20 114/50 L 93 2 Intake & Output: Intake & Output 12/25/21 12/26/21 12/27/21 12/28/21 23:59 23:59 23:59 23:59 Intake Total 1100 2230 2050 1340 Output Total 700 600 925 Balance 400 1630 1125 1340 - Objective General Appearance: positive: No acute distress, Alert Eyes Bilateral: positive: Normal inspection, PERRL, EOMI ENT: positive: ENT inspection nml, Pharynx nml, No signs of dehydration Neck: positive: Nml inspection, No JVD. negative: Stiff neck Respiratory: positive: No respiratory distress, Wheezes Cardiovascular: positive: Regular rate & rhythm, No murmur, No gallop Abdomen: positive: Non-tender, No organomegaly, Nml bowel sounds, No distention Skin: positive: Color nml, No rash, Warm, Dry. negative: Cyanosis Extremities: positive: Full ROM, Nml appearance, No pedal edema Neurologic/Psychiatric: positive: Oriented x3, CN's nml (2-12), Mood/affect nml - Lab Results Fish Bones: 12/28/21 05:35 12/28/21 05:35 Other Labs: Lab Results x24hrs 12/28/21 12/28/21 12/28/21 Range/Units 05:35 05:35 05:35 WBC (4.8-10.8) x10^3/uL RBC (4.20-5.40) 10^6/uL Hgb (12.0-16.0) g/dL Hct (37.0-47.0) % MCV (81.0-99.0) fL MCH (27.0-31.0) pg MCHC (32.0-36.0) g/dL RDW (12.0-15.0) % Plt Count (130-450) 10^3/uL MPV (7.9-10.8) fL Neut # (Auto) (1.5-6.6) 10^3/uL Lymph # (Auto) (1.5-3.5) 10^3/uL [place] # (Auto) (0.0-1.0) 10^3/uL Eos # (Auto) (0.0-0.7) 10^3/uL Baso # (Auto) (0.0-0.1) 10^3/uL Absolute Nucleated RBC x10^3/uL Nucleated RBC % /100WBC VBG pH 7.385 (7.31-7.41) VBG pCO2 69.5 H (41-51) mmHg VBG pO2 74.9 H (25-47) mmHg VBG HCO3 40.7 H (23-28) mmol/L VBG Total CO2 42.8 H (24-29) mmol/L VBG O2 Saturation 95.9 H (60-80) % VBG Base Excess 11.9 H (-2 - +2) mmol/L Sodium 141 (135-145) mmol/L Potassium 4.7 (3.5-5.0) mmol/L Chloride 94 L (101-111) mmol/L Carbon Dioxide 39 H* (21-32) mmol/L Anion Gap 8.0 (6-13) BUN 28 H (6-20) mg/dL Creatinine 0.4 (0.4-1.0) mg/dL Estimated GFR (MDRD) 157 (>89) Glucose 153 H (70-100) mg/dL Calcium 9.0 (8.5-10.3) mg/dL B-Natriuretic Peptide 136 H (5-100) pg/mL 12/28/21 Range/Units 05:35 WBC 9.9 (4.8-10.8) x10^3/uL RBC 5.05 (4.20-5.40) 10^6/uL Hgb 14.9 (12.0-16.0) g/dL Hct 49.7 H (37.0-47.0) % MCV 98.4 (81.0-99.0) fL MCH 29.5 (27.0-31.0) pg MCHC 30.0 L (32.0-36.0) g/dL RDW 16.0 H (12.0-15.0) % Plt Count 226 (130-450) 10^3/uL MPV 10.0 (7.9-10.8) fL Neut # (Auto) 9.3 H (1.5-6.6) 10^3/uL Lymph # (Auto) 0.1 L (1.5-3.5) 10^3/uL [place] # (Auto) 0.4 (0.0-1.0) 10^3/uL Eos # (Auto) 0.0 (0.0-0.7) 10^3/uL Baso # (Auto) 0.0 (0.0-0.1) 10^3/uL Absolute Nucleated RBC 0.00 x10^3/uL Nucleated RBC % 0.0 /100WBC VBG pH (7.31-7.41) VBG pCO2 (41-51) mmHg VBG pO2 (25-47) mmHg VBG HCO3 (23-28) mmol/L VBG Total CO2 (24-29) mmol/L VBG O2 Saturation (60-80) % VBG Base Excess (-2 - +2) mmol/L Sodium (135-145) mmol/L Potassium (3.5-5.0) mmol/L Chloride (101-111) mmol/L Carbon Dioxide (21-32) mmol/L Anion Gap (6-13) BUN (6-20) mg/dL Creatinine (0.4-1.0) mg/dL Estimated GFR (MDRD) (>89) Glucose (70-100) mg/dL Calcium (8.5-10.3) mg/dL B-Natriuretic Peptide (5-100) pg/mL Sepsis Event Note (H) - Evaluation Current Stage of Sepsis: Ruled out Assessment/Plan - Problem List (1) Contamination of blood culture Impression: Repeat blood cultures were negative for growth and her CBC is within normal limits. (2) Acute respiratory failure with hypoxia Conclusion/Plan: O2 saturation is at 95% with a nasal cannula on 2L of air. Plan: Continue oxygen She will need an oximetry walk test on the day of discharge for very likely needing a new home O2 order. (3) COPD exacerbation Conclusion/Plan: She is feeling better today and is able to sit up in a chair and eat breakfast and walk from the bed to the bathroom with oxygen. She says she can get to the bathroom but getting up from the toilet is difficult and getting back in bed or back in her chair feels strenuous. Her hgb has reduced to normal limits, her hct has been decreasing daily, today it's at 49.7. Her carbon dioxide level is at 39 and BUN is 28. Her VBG is still indicating compensated respiratory acidosis. Her blood work and EKG are suggestive of alf COPD however the patient is adamant that she never had problems with shortness of breath before she got sick about three weeks ago. I wonder if she has had alf untreated COPD and has compensated well enough she didn't view it as a problem until it was extremely exacerbated. Plan: Continue duoneb QID and montelukast Discontinue methylprednisolone (4) Congestive heart failure Conclusion/Plan: Systolic vs diastolic heart failure, suspected due to very elevated BNP of 790 and EKG suggestive of cor pulmonale. Plan: Continue lasix 20mg daily Echo ordered, she may complete outpatient if she is stable and ready to be discharged before she is able to get an echo performed here. Follow BNP, I's and O's, daily weights, BMP and Mg Remain on telemetry Qualifiers: Heart failure type: unspecified Heart failure chronicity: unspecified Qualified Code(s): I50.9 - Heart failure, unspecified (5) Abnormal EKG Conclusion/Plan: She has a very remarkable and very abnormal EKG. My interpretation is that she likely has Cor Pulmonale, based on that EKG, which shows: sinus tachycardia, P pulmonale, right axis deviation, and low voltage. Plan: Continue lasix 20mg IV daily (6) Polycythemia Conclusion/Plan: This is a sign of her very likely longstanding COPD and chronic hypoxia. (7) Protein calorie malnutrition Conclusion/Plan: Her BMI is 20. Plan: Will offer Ensure for more calorie intake (8) Hx of tobacco use Conclusion/Plan: She quit smoking one year ago
[2021-12-28] MEDS: MONTELUKAST 10 MG TABLET PO SCH (20:37)
[2021-12-29] MEDS: IPRATROPIUM/ALBUTEROL 3 ML NEB INH SCH ×4 (07:40→19:36)
[2021-12-29] MEDS: BUDESONIDE 0.5 MG/2 ML NEB INH SCH ×2 (07:40→19:36)
[2021-12-29] MEDS: FUROSEMIDE 40 MG/4 ML VIAL IVP SCH (08:33)
[2021-12-29] MEDS: SODIUM CHLORIDE FLUSH 0.9% 10 ML SYRINGE IVP SCH ×3 (08:33→23:56)
--- NOTE | 2021-12-29 14:48 | PROVIDER PROGRESS NOTE ---
Subjective - Prog Note Date Prog Note Date: 12/29/21 Prog Note Time: 14:51 - Subjective Subjective: She feels that she has come to a certain plateau. While she was gradually improving every day, the last 2 days have been stable. But not stable in a way she likes. She is still significantly short of breath with just walking to the bathroom and back. She is exhausted. She is worried about home and how she will manage usual activities. We had a long talk that this may take a long time to get over. Right now she should focus on the simple activities of daily living. Someone else should be taking care of the cooking, cleaning, driving, etc. Current Medications - Current Medications Current Medications: Active Medications Acetaminophen (Acetaminophen 325 Mg Tablet) 650 mg PO Q4HR PRN PRN Reason: Pain 1 to 4, or Fever Hydrocodone Bitart/Acetaminophen (Hydrocod/Acetam 5/325 Mg Tablet) 1 tab PO Q4HR PRN PRN Reason: Pain 5 to 7 Albuterol/Ipratropium (Ipratropium/Albuterol 3 Ml Neb) 3 ml INH RTQID [facility] Last Admin: 12/29/21 12:07 Dose: 3 ml Budesonide (Budesonide 0.5 Mg/2 Ml Neb) 0.5 mg INH RTBID [facility] Last Admin: 12/29/21 07:40 Dose: 0.5 mg Furosemide (Furosemide 40 Mg/4 Ml Vial) 20 mg IVP DAILY [facility] Last Admin: 12/29/21 08:33 Dose: 20 mg Montelukast Sodium (Montelukast 10 Mg Tablet) 10 mg PO QPM [facility] Last Admin: 12/28/21 20:37 Dose: 10 mg Ondansetron HCl (Ondansetron 4 Mg/2 Ml Vial) 4 mg IVP Q6HR PRN PRN Reason: Nausea / Vomiting Sodium Chloride (Sodium Chloride Flush 0.9% 10 Ml Syringe) 10 ml IVP PRN PRN PRN Reason: NEEDED PER PROVIDER ORDERS Last Admin: 12/26/21 13:53 Dose: 10 ml Sodium Chloride (Sodium Chloride Flush 0.9% 10 Ml Syringe) 10 ml IVP 0100,0900,1700 [facility] Last Admin: 12/29/21 08:33 Dose: 10 ml Zolpidem Tartrate (Zolpidem 5 Mg Tablet) 5 mg PO QPM PRN PRN Reason: Insomnia No Known Home Medications 12/24/21 Objective - Vital Signs/Intake & Output Reviewed Vital Signs: Yes Vital Signs: Vital Signs x48h Temp Pulse Pulse Resp BP Pulse Ox O2 Flow Rate 12/29/21 12:27 36.6 C 88 18 116/58 L 92 2 12/29/21 12:08 88 20 2 12/29/21 08:40 92 12/29/21 08:34 85 L 12/29/21 07:45 36.4 C L 83 18 119/61 92 2 12/29/21 07:41 84 20 2 Intake & Output: Intake & Output 12/26/21 12/27/21 12/28/21 12/29/21 23:59 23:59 23:59 23:59 Intake Total 2230 2050 2296 720 Output Total 600 925 550 Balance 1630 1125 1746 720 - Objective General Appearance: positive: Alert, Other (Thin appearing white female who looks stated age. Does have gotten as to her face, and is fatigued appearing. But she is comfortable sitting upright in her chair in her room.) Eyes Bilateral: positive: PERRL, EOMI Neck: positive: No JVD. negative: Stiff neck Respiratory: positive: No respiratory distress, Wheezes (scattered, but I can hear air sounds.). negative: Rales, Rhonchi Cardiovascular: positive: Regular rate & rhythm Abdomen: positive: Non-tender, No organomegaly, Nml bowel sounds, No distention Skin: positive: Warm, Dry Extremities: positive: Full ROM, No pedal edema Neurologic/Psychiatric: positive: Oriented x3, CN's nml (2-12), Motor nml (just wiped out by simple exertion) - Lab Results Fish Bones: 12/28/21 05:35 12/28/21 05:35 Sepsis Event Note (H) - Evaluation Current Stage of Sepsis: Ruled out Assessment/Plan - Problem List (1) Acute respiratory failure with hypoxia Impression: She has slowly turned the corner with regards to her wheezing. However continues to be hypoxic. She is very clear that she is never been on oxygen before at home. O2 saturation is at 95% with a nasal cannula on 2L of air. Plan: Continue oxygen She will need an oximetry walk test on the day of discharge for very likely needing a new home O2 order. She really has improved from her COPD exacerbation. She is just considerably weak, fatigued. Gets short of breath just getting up to go to the bathroom. Takes a bit to recover when she gets back to bed. She has been staying solid at 2 L. I may end up having to send her home on 2 L nasal cannula with eventual taper off at home as she recovers. I do not think she is going to get much better by staying in the hospital. As such I will discharge her to home tomorrow morning. (2) COPD exacerbation Conclusion/Plan: Day by day she has been slowly improving. and is able to sit up in a chair and eat breakfast and walk from the bed to the bathroom with oxygen. She says she can get to the bathroom but getting up from the toilet is difficult and getting back in bed or back in her chair feels strenuous. Her hgb has reduced to normal limits, her hct has been decreasing daily,12/28 it was 49.7. Her carbon dioxide level was at 39 and BUN was 28. Her VBG is still indicating compensated respiratory acidosis. Her blood work and EKG are suggestive of penitentiary COPD however the patient is adamant that she never had problems with shortness of breath before she got sick about three weeks ago. 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 Off methylprednisolone since yesterday morning. So far no rebound wheezing. Plan: Continue duoneb QID and montelukast Tentative plan for discharge tomorrow with home O2. I have spoken to respiratory therapy in management of this patient. They are assuring me that they will be able to have home oxygen, nebulizer machine, and nebulizer set up for tomorrow without any difficulty even notes the day before Thanksgiving. (3) Congestive heart failure Conclusion/Plan: Systolic vs diastolic heart failure, suspected due to very elevated BNP of 790 and EKG suggestive of cor pulmonale. Plan: Continue lasix 20mg daily Echo ordered, she may complete outpatient if she is stable and ready to be discharged before she is able to get an echo performed here. Follow BNP, I's and O's, daily weights, BMP and Mg Remain on telemetry Qualifiers: Heart failure type: unspecified Heart failure chronicity: unspecified Qualified Code(s): I50.9 - Heart failure, unspecified (4) Contamination of blood culture Impression: Repeat blood cultures were negative for growth and her CBC is within normal limits. One of her reasons for continued admission was positive blood cultures from the night of admission. She was positive first staff. It took several days for it to be finalized. She ended up growing off staph epi. 1 out of 4 bottles. It was positive just a bit over 24 hours from when it was drawn.. As such I had stopped all of her antibiotics since I do not believe this is true staph bacteremia and in fact just contamination of blood cultures (5) Abnormal EKG Conclusion/Plan: She has a very remarkable and very abnormal EKG. My interpretation is that she likely has Cor Pulmonale, based on that EKG, which shows: sinus tachycardia, P pulmonale, right axis deviation, and low voltage. Plan: Continue lasix 20mg IV daily (6) Polycythemia Conclusion/Plan: This is a sign of her very likely longstanding COPD and chronic hypoxia. (7) Protein calorie malnutrition Conclusion/Plan: Her BMI is 20. Plan: Will offer Ensure for more calorie intake (8) Hx of tobacco use Conclusion/Plan: She quit smoking one year ago
[2021-12-29] MEDS: MONTELUKAST 10 MG TABLET PO SCH (21:23)
[2021-12-30 05:52] LABS: EOSINOPHILS # (AUTO) 0.4 10^3/uL (0.0-0.7); EOSINOPHILS % (AUTO) 4.5 %; HCT - HEMATOCRIT 50.9 % (37.0-47.0); HGB - HEMOGLOBIN 15.4 g/dL (12.0-16.0); LYMPHOCYTES # (AUTO) 0.6 10^3/uL (1.5-3.5); LYMPHOCYTES % (AUTO) 7.1 %; MEAN CORPUSCULAR HEMOGLOBIN 29.4 pg (27.0-31.0); MEAN CORPUSCULAR HGB CONC 30.3 g/dL (32.0-36.0); MEAN CORPUSCULAR VOLUME 97.3 fL (81.0-99.0); MEAN PLATELET VOLUME 10.2 fL (7.9-10.8); MONOCYTES # (AUTO) 0.8 10^3/uL (0.0-1.0); MONOCYTES % (AUTO) 9.8 %; NEUTROPHILS # (AUTO) 6.3 10^3/uL (1.5-6.6); NEUTROPHILS % (AUTO) 78.1 %; PLT - PLATELET COUNT 197 10^3/uL (130-450); RED BLOOD COUNT 5.23 10^6/uL (4.20-5.40); RED CELL DISTRIBUTION WIDTH 15.6 % (12.0-15.0)
[2021-12-30 06:01] LABS: CALCIUM 8.8 mg/dL (8.5-10.3); CREATININE 0.4 mg/dL (0.4-1.0); POTASSIUM 4.7 mmol/L (3.5-5.0)
[2021-12-30] MEDS: IPRATROPIUM/ALBUTEROL 3 ML NEB INH SCH ×3 (07:10→14:26)
[2021-12-30] MEDS: BUDESONIDE 0.5 MG/2 ML NEB INH SCH (07:10)
[2021-12-30] MEDS: SODIUM CHLORIDE FLUSH 0.9% 10 ML SYRINGE IVP SCH (08:29)
[2021-12-30] MEDS: FUROSEMIDE 40 MG/4 ML VIAL IVP SCH (08:29)
--- NOTE | 2021-12-30 10:45 | Discharge Plan ---
Discharge Plan Problem Reviewed?: Yes Disposition: Home, Self Care Condition: Fair Prescriptions: Ipratropium/Albuterol [Duoneb] 3 ml INH RTQID #120 ml Formoterol Fumarate [Perforomist] 20 mcg IH BID #60 ml Budesonide [Pulmicort] 0.5 mg INH RTBID #60 ml Diet: Regular Activity Restrictions: Activity as Tolerated Shower Restrictions: No Driving Restrictions: No Health Concerns: You presented to the emergency room with cough, shortness of breath, and with some measurable just trying to get up to walk a few feet. You have stopped smoking a year ago. In the emergency room he had a very low oxygen level and we found you to have the blood work changes of someone who has chronic emphysema for quite some time. So we think that you may have had emphysema much longer than he realized. We did not find you to be acutely infected with pneumonia with a bacteria. All of your viral panels for COVID or influenza were negative. However we do think you had a viral infection that then tipped your emphysema into severe exacerbation. It is required steroids, nebulizers and antibiotics to stabilize you. You are still very weak, tired, and still need 2 L of nasal cannula oxygen to maintain your oxygen saturations. But you are stable enough to return to home. Plan of Treatment: 1. For the new diagnosis of emphysema you will need to see your primary care provider in follow-up and she will need to refer you to a electrical manager. The electrical manager will evaluate you and also order pulmonary function studies to q uantify how much emphysema you have. You have not seen a primary care provider in 12 years. You use to see ARLYN Moore. Please see if you can get in to see her in follow-up. As regards to the electrical manager, you may be able to call and make your own appointment. The list of electrical manager near the [place] include: [facility], pulmonary and asthma in [facility]. [phone]. Please asked that office if they have any electrical manager closer to you such as in [place] or [place]. [facility] pulmonology and sleep medicine in [place]. [phone]. [facility] pulmonary medicine. [phone]. They are in [place]. [facility] pulmonary and sleep medicine. They are in [place]. [phone] 2. Emphysema and exacerbation is usually related to carbon dioxide retention. Into the inability of your bronchial tubes to allow you to exhale. That is where the whistling noise comes from. We gave you medicines to relax the bronchial tubes and to reduce the inflammation. Those medicines will be: An inhaled long-acting steroid called budesonide twice a day An inhaled long-acting bronchodilator called Perforomist twice a day A short acting bronchodilator called DuoNeb which has albuterol and ipratropium combined. You will take that up to 3 times a day. 3. We are so glad that you no longer smoke. Make sure you no longer do that. 4. People who have emphysema get very deconditioned physically because of their shortness of breath. We find that if you can do a cardiopulmonary rehabilitation program, it stabilizes your disease and improve your endurance. I would recommend you be seen by the cardiopulmonary rehab program here at the hospital. Care Goals: Your current care goal is to get through this acute exacerbation of emphysema and to return to your baseline status where you were completely independent. We had a long talk about your prognosis overall. You really should be able to return to baseline. However one of your goals should be making sure that you are set up for aging in place. You do not want to go live with her daughter in [place]. You would like to remain in your own home. You are moving forward with getting help from your niece and nephew who live nearby. You were also in the process of probably hiring a caregiver to come by 2 or 3 times a week. These are all excellent ways to be able to age and place. As you get older, however, the quality of your life may diminish because of aging and lung disease. Who knows when that will be but you will have noticeable less mobility and noticeable less ability to take care of yourself. As it happens, we would ask you to rediscuss your care goals with your family. Is there any quality of life that you enjoy so much that if you were to lose it you would not find life worth living? That is not something you can answer now but something more to think about for the future. If you find that the quality of her life has deteriorated to the point that you do not know if you want to keep on going to the hospital or be resuscitated, please let your doctor know and your family know. You are currently a full code and want everything done to keep you alive even if it is being on life support. Assessment: Patient is alert, oriented. Making her own decisions. Daughter, and advocate, is at her side and will help mom achieve her care goals. Follow-Up Care: [facility] - Pulmonary No Smoking: If you smoke, Please STOP! Call for help. Follow-up with: Paulette Moore PA-C [Provider Admit Priv/Credential] -
--- NOTE | 2021-12-30 11:10 | DISCHARGE SUMMARY ---
"Discharge Summary Admit Date: 12/24/21 Discharge Date: 12/30/21 Discharging Provider: Tri Denise MD Primary Care Provider: ARLYN Lozano Code Status: Attempt Resuscitation Condition at Discharge: Fair Discharge Disposition: 01 Home, Self Care - DIAGNOSES Discharge Diagnoses with Status of Each Condition: 1. COPD with acute exacerbation 2. Hypoxemia 3. Abnormal chest x-ray 4. History of tobacco abuse 5. Cor pulmonale - HPI History of Present Illness: 71 yr woman with hx of chronic tobacco use dependence smoking quit one year ago comes to ER with worsening SOB, cough, barrel chest, patient in ER found to be hypoxic also found to have elevated BNP with CXR concerning for mild CHF. Patient needed multiple nebs and iv steroids and I was requested by ER MD to admit patient for medical optimization, patient also found to be hypoxic with metabolic alkalosis and co2 retention likely from COPD. History obtained limited and unable to have vido connect due to technical difficulty No other active concer, no cp, no palpitations and no other active complaints We were able to get connected on telemedicine and technical issues resolved, patient used to work in a bank, leaves alone, not feeling well for last 14 days, patient did have a runny nose, discussed with ER MD and awaiting Flu/Covid panel he will follow up and call me if any positive results, no chest, no plaitations, no other acute complaints, still feels weak and tired, discussed code status and she wants to be full code. I appreciate the assitance from RN supervisor properties with televideo call, - CONSULTS | PROCEDURES Procedures: 1. 2 chest x-rays. They had hyperinflation and chronic interstitial changes with small bibasilar pleural effusion. There were changes of possible pulmonary vascular congestion but we think in retrospect it was just due to technique and over read. 2. Echocardiogram done for abnormal EKG and suspicion of cor pulmonale showed her to have left ventricular systolic function normal with an ejection fraction of 55 to 60%. The left ventricular septal wall is flattened in systole consistent with right ventricular pressure overload right ventricular systolic function mildly impaired with a fractional area change of 30%. The mid to distal RV free wall is hypokinetic. Normal right and left atrial sizes. Aortic valve sclerosis without stenosis. - HOSPITAL COURSE Hospital Course: Even though there is no pneumonia seen on chest x-ray this patient was started empiric antibiotic therapy for possible bronchitis as the cause of her acute exacerbation. We suspect more of a viral element even though her entire viral PCR panel was negative. She did not have RSV, COVID, or rhinovirus. Nevertheless she presented with congestion, sore throat, fever, runny nose. In evaluating her EKG, echocardiogram and serum CO2 retention as well as polycythemia we think this this lady may have had emphysema for quite some time but did not recognize it. She gradually improved and that she was wheezing last, able to ambulate in her room and was able to sit up in her chair. But she was severely deconditioned and she was alarmed at how much strength she lost in just a short hospitalization. At baseline the most we can get her down to was 2 L of nasal cannula per minute. At rest she had room air sats of 86%. On 2 L na cecilia cannula at rest her O2 sats were 93%. With exertion her oxygen saturations were 90% on 2 2 L. I am ordering home oxygen, 2 L/min at rest with exertion to treat her COPD and resulting hypoxemia. I am also sending her home on budesonide and Perforomist twice a day. And DuoNeb up to 3 times a day as needed. She will need to be seen by her primary care provider in follow-up. She has not seen ARLYN Moore for 12 years. I advised her to be seen within the next 2 weeks. She needs to be referred to cardiopulmonary rehab and would also need referral for pulmonary function studies and a subsequent evaluation with pulmonology. She lives alone. She would prefer to age and place within her own home. Daughter lives in [place]. Daughter was here to advocate for mom. The care plan for home is to have a niece and nephew that live nearby come over to check on her frequently. The patient needs to ask for help to get to doctors appointments, grocery shopping, etc. They are hiring a caregiver to come by 2 hours at a time, maybe 3 times a week. That caregiver requirement will be escalated if she needs more time. Temperature is 36.4. Heart rate 88. Blood pressure 111/53. She is on 2 L nasal cannula with 92% saturation. She is 5 feet 5 inches tall weighs 56.69 kg. Neck is supple. No JVD. Lungs have prolonged and exhalation, and she does well at rest. With getting up to walk to the bathroom which is about 12 feet and back into her chair she has some slight and exhalation wheezing. Some tachypnea that takes 2 minutes to recover. She has a regular rate and rhythm. I do feel a right ventricular lift. Abdomen is soft, nontender. Normal bowel sounds. Extremities have no edema. Greater than 30 minutes was spent coordinating discharge. - ALLERGIES Allergies/Adverse Reactions: Allergies Allergy/AdvReac Type Severity Reaction Status Date / Time amoxicillin Allergy Hives Verified 12/24/21 18:33 - MEDICATIONS Home Medications: Ambulatory Orders Medication Instructions Recorded Confirmed Acetaminophen [Tylenol] 650 mg PO Q4HR PRN tab 12/30/21 Budesonide [Pulmicort] 0.5 mg INH RTBID #60 ml 12/30/21 Formoterol Fumarate [Perforomist] 20 mcg IH BID #60 ml 12/30/21 Ipratropium/Albuterol [Duoneb] 3 ml INH RTQID #120 ml 12/30/21 - LABS Result Diagrams: 12/30/21 05:35 12/30/21 05:35 - SEPSIS Current Stage of Sepsis: Ruled out"
[2021-12-30 11:27] VITALS: BP 91/58
== END 2021-12-30 14:56 | disposition home or self-care (01) | DRG 190 ==
LOC: EDUNIT# → ED 18:23 → MS2 12-25 13:45 → OBSVTOIN 12-25 19:06
PROVIDERS: ADMIT Internal Medicine; ATTEND Specialist
DX: J44.1 Chronic obstructive pulmonary disease with (acute) exacerbation (principal); J96.01 Acute respiratory failure with hypoxia; R78.81 Bacteremia; E46 Unspecified protein-calorie malnutrition; I27.81 Cor pulmonale (chronic); D75.1 Secondary polycythemia; E87.3 Alkalosis; I44.4 Left anterior fascicular block; R00.0 Tachycardia, unspecified; R53.1 Weakness; I50.9 Heart failure, unspecified; Z20.822 Contact with and (suspected) exposure to COVID-19; R00.1 Bradycardia, unspecified; R94.31 Abnormal electrocardiogram [ECG] [EKG]; Z68.20 Body mass index [BMI] 20.0-20.9, adult; Z87.891 Personal history of nicotine dependence
CPT/HCPCS: 36415; 71045; 71046; 80048; 80053; 81279; 82803; 83605; 83735; 83880; 84484; 85025; 87040; 87150; 87181; 87633; 93005; 93306; 94640; 94664; 94761; 96365; 96367; 96375; 96376; 99285; 99291; A9270; J7512; J7626

== ENCOUNTER 2022-02-02 09:44 | Outpatient (CLI) | payer MEDICARE, OTHER ==
[2022-02-02 12:35] LABS: BASOPHILS # (AUTO) 0.1 10^3/uL (0.0-0.1); BASOPHILS % (AUTO) 1.5 %; EOSINOPHILS # (AUTO) 0.2 10^3/uL (0.0-0.7); EOSINOPHILS % (AUTO) 3.1 %; HCT - HEMATOCRIT 49.8 % (37.0-47.0); HGB - HEMOGLOBIN 15.5 g/dL (12.0-16.0); LYMPHOCYTES # (AUTO) 1.3 10^3/uL (1.5-3.5); LYMPHOCYTES % (AUTO) 25.3 %; MEAN CORPUSCULAR HEMOGLOBIN 28.8 pg (27.0-31.0); MEAN CORPUSCULAR HGB CONC 31.1 g/dL (32.0-36.0); MEAN CORPUSCULAR VOLUME 92.6 fL (81.0-99.0); MEAN PLATELET VOLUME 10.4 fL (7.9-10.8); MONOCYTES # (AUTO) 0.5 10^3/uL (0.0-1.0); NEUTROPHILS # (AUTO) 3.2 10^3/uL (1.5-6.6); NEUTROPHILS % (AUTO) 60.5 %; PLT - PLATELET COUNT 282 10^3/uL (130-450); RED BLOOD COUNT 5.38 10^6/uL (4.20-5.40); RED CELL DISTRIBUTION WIDTH 14.6 % (12.0-15.0); WHITE BLOOD COUNT 5.2 x10^3/uL (4.8-10.8)
[2022-02-02 13:52] LABS: THYROID STIMULATING HORMONE 1.88 uIU/mL (0.34-5.60)
[2022-02-02 13:59] LABS: ALKALINE PHOSPHATASE 67 IU/L (42-121); ALT ALANINE AMINOTRANSFERASE 30 IU/L (10-60); AST ASPARTATE AMINOTRANSFERASE 27 IU/L (10-42); BILIRUBIN,TOTAL 0.7 mg/dL (0.2-1.0); BUN - BLOOD UREA NITROGEN 14 mg/dL (6-20); CALCIUM 9.4 mg/dL (8.5-10.3); CARBON DIOXIDE - CO2 32 mmol/L (21-32); CHLORIDE 98 mmol/L (101-111); CHOL/HDL RATIO 2.6 (<4.4); CHOLESTEROL 254 mg/dL; CREATININE 0.5 mg/dL (0.4-1.0); GFR - MDRD 121 (>89); GLUCOSE 97 mg/dL (70-100); HDL CHOLESTEROL 99 mg/dL; LDL CHOLESTEROL,CALCULATED 138 mg/dL; LDL/HDL RATIO 1.4 (<4.4); POTASSIUM 4.1 mmol/L (3.5-5.0); SODIUM 138 mmol/L (135-145); TOTAL PROTEIN 7.9 g/dL (6.7-8.2); TRIGLYCERIDES 85 mg/dL; VLDL CHOLESTEROL 17 mg/dL
== END 2022-02-02 09:45 | disposition home or self-care (01) ==
LOC: LAB.N 09:44
PROVIDERS: ATTEND Physician Assistant
DX: Z51.81 Encounter for therapeutic drug level monitoring (principal); Z13.220 Encounter for screening for lipoid disorders; D75.1 Secondary polycythemia; R60.0 Localized edema
CPT/HCPCS: 36415; 80053; 80061; 83721; 84443; 85025